=== PATIENT | male | born 1990 | race Caucasian/White ===

== ENCOUNTER 2023-08-15 11:58 | Inpatient (IN) | payer BC, MEDICAID, OTHER ==
[~2023-08-15] VITALS: Ht 180.3 cm; Wt 170.1 kg
[~2023-08-15 11:58] MED LIST: FLUO10CA21 PO
[2023-08-15 12:14] VITALS: BP 149/93; PULSE 121; RESP 38; TEMP 97.5
[2023-08-15 13:45] LABS: BASOPHILS # (AUTO) 0.2 K/uL (0.00-0.22); BASOPHILS % (AUTO) 1.3 % (0.0-2.0); EOSINOPHILS # (AUTO) 0.1 K/uL (0-0.4); EOSINOPHILS % (AUTO) 0.7 % (0.0-4.0); HEMATOCRIT 36.6 % (36-52); HEMOGLOBIN 12.5 g/dL (12.0-18.0); LYMPHOCYTES # (AUTO) 2.1 K/uL (2.0-11.5); LYMPHOCYTES % (AUTO) 14.5 % (20.5-51.1); MEAN CORPUSCULAR HEMOGLOBIN 29 pg (27-31); MEAN CORPUSCULAR HGB CONC 34 g/dL (33-37); MEAN CORPUSCULAR VOLUME 85.8 fL (80-94); MONOCYTES # (AUTO) 1.1 K/uL (0.8-1.0); NEUTROPHILS # (AUTO) 10.8 K/uL (1.8-7.7); NEUTROPHILS % (AUTO) 75.5 % (42.2-75.2); PLATELET COUNT (AUTO) 673 K/uL (140-450); RED BLOOD CELL COUNT(AUTO) 4.27 MIL/uL (4.20-6.10); RED CELL DISTRIBUTION WIDTH 14.2 % (11.6-13.7); WHITE BLOOD COUNT (AUTO) 14.3 K/uL (4.8-10.8)
[2023-08-15] MEDS: NACL 0.9% 1,000 ML IV ONE (13:55)
[2023-08-15 13:56] LABS: INR 1.09 (0.8-1.2); PROTHROMBIN TIME 11.4 secs (10.8-13.4)
[2023-08-15] MEDS: MORPHINE SULFATE 4 MG/ML SYR IVP ONE ×2 (13:56→15:08)
[2023-08-15] MEDS: ONDANSETRON 4 MG/2 ML VIAL IVP ONE (13:57)
[2023-08-15 14:11] LABS: ANION GAP 12.9 (8-16); CALCIUM 8.9 mg/dL (8.5-10.1); CARBON DIOXIDE 25.9 mmol/L (21-32); CREATININE 0.9 mg/dL (0.6-1.3); POTASSIUM 3.8 mmol/L (3.5-5.1)
[2023-08-15 14:14] LABS: ALANINE AMINOTRANSFERASE 28 U/L (12-78); ALBUMIN 2.5 g/dL (3.4-5.0); ALKALINE PHOSPHATASE 83 U/L (50-136); ASPARTATE AMINOTRANSFERASE 22 U/L (15-37); BILIRUBIN,DIRECT 0.1 mg/dL (0.0-0.3); CREATINE KINASE, TOTAL 25 U/L (39-308); PHOSPHORUS 3.2 mg/dL (2.5-4.9); TOTAL BILIRUBIN 0.4 mg/dL (0.0-1.0); TOTAL PROTEIN, SERUM 8.7 g/dL (6.4-8.2)
[2023-08-15 15:33] LABS: AMPHETAMINE, URINE POSITIVE ng/ml (NEG <=1000); BARBITURATE, URINE NEGATIVE ng/ml (NEG <=200); BENZODIAZEPINE, URINE NEGATIVE ng/mL (NEG <=200); CANNABINOID, URINE NEGATIVE ng/mL (NEG <=50); COCAINE, URINE NEGATIVE ng/mL (NEG <=300); PHENCYCLIDINE SCREEN,URINE NEGATIVE ng/mL (NEG <=25)
[2023-08-15 15:34] LABS: OPIATE, URINE POSITIVE ng/mL (NEG <=2000)
[2023-08-15] MEDS ORDERED: VANCOMYCIN PER PHARMACY MC PRN ×2 (16:15→17:20)
[2023-08-15] MEDS ORDERED: VANCOMYCIN 1,000 MG VIAL ONE (16:34)
[2023-08-15] MEDS: KETOROLAC 30 MG/ML VIAL IVP ONE (16:53)
[2023-08-15] MEDS: LORazepam 2 MG/ML VIAL IVP ONE (16:58)
[2023-08-15] MEDS: VANCOMYCIN 1,000 MG in DEXTROSE 5% 250 ML IV ONE (17:10)
[2023-08-15] MEDS ORDERED: LORazepam 2 MG/ML VIAL IVP PRN (17:20)
[2023-08-15] MEDS ORDERED: CLONIDINE HYDROCHLORIDE 0.1 MG TAB PO PRN (17:20)
[2023-08-15] MEDS ORDERED: ONDANSETRON 4 MG/2 ML VIAL IVP PRN (17:20)
[2023-08-15] MEDS ORDERED: ACETAMINOPHEN 325 MG TAB PO PRN (17:20)
[2023-08-15] MEDS ORDERED: IBUP-2213 PO (18:11)
[2023-08-15] MEDS ORDERED: FURO20TA8 PO (18:11)
[2023-08-15] MEDS ORDERED: GABAPENTIN (18:11)
[2023-08-15 18:50] VITALS: PULSE 98
[2023-08-15 18:57] VITALS: BP 130/60; PULSE 100; RESP 19; TEMP 98.1; O2SAT 95
[2023-08-15 19:30] VITALS: PULSE 100; RESP 18; O2SAT 98
[2023-08-15 20:00] VITALS: PULSE 100
[2023-08-15] MEDS: PANTOPRAZOLE 40 MG INJ VIAL IVP SCH (22:16)
[2023-08-15] MEDS: NACL 0.9% 1,000 ML IV SCH (22:16)
[2023-08-15] MEDS: PIPERACILLIN/TAZOBACTAM 3.375 GM in DEXTROSE 5% 50 ML IV SCH (22:17)
[2023-08-15] MEDS: PIPERACILLIN/TAZOBACTAM 3.375 GM VIAL IV ONE (22:19)
[2023-08-16] VITALS: BP_SYST 105; BP_SYST 118; BP_DIAS 57; BP_DIAS 70; PULSE 104; PULSE 108; PULSE 96; RESP 19; TEMP 98.2; TEMP 99; O2SAT 94; O2SAT 97
[2023-08-16] MEDS: MORPHINE SULFATE 2 MG/ML SYR IVP PRN (01:00)
[2023-08-16] MEDS: HYDROcodone/APAP 5/325 MG 1 TAB TAB PO PRN (02:59)
[2023-08-16] MEDS: PIPERACILLIN/TAZOBACTAM 3.375 GM VIAL IV ONE (03:11)
[2023-08-16 04:00] VITALS: BP 105/57; PULSE 102; PULSE 96; RESP 19; TEMP 98.2; O2SAT 94
[2023-08-16 06:34] LABS: BASOPHILS # (AUTO) 0.1 K/uL (0.00-0.22); BASOPHILS % (AUTO) 0.9 % (0.0-2.0); EOSINOPHILS # (AUTO) 0.2 K/uL (0-0.4); EOSINOPHILS % (AUTO) 1.4 % (0.0-4.0); HEMATOCRIT 34.8 % (36-52); HEMOGLOBIN 11.8 g/dL (12.0-18.0); LYMPHOCYTES # (AUTO) 2.4 K/uL (2.0-11.5); LYMPHOCYTES % (AUTO) 19.4 % (20.5-51.1); MEAN CORPUSCULAR HEMOGLOBIN 29 pg (27-31); MEAN CORPUSCULAR HGB CONC 34 g/dL (33-37); MEAN CORPUSCULAR VOLUME 86.2 fL (80-94); MONOCYTES # (AUTO) 1.3 K/uL (0.8-1.0); MONOCYTES % (AUTO) 10.6 % (1.7-9.3); NEUTROPHILS # (AUTO) 8.2 K/uL (1.8-7.7); NEUTROPHILS % (AUTO) 67.7 % (42.2-75.2); PLATELET COUNT (AUTO) 673 K/uL (140-450); RED BLOOD CELL COUNT(AUTO) 4.04 MIL/uL (4.20-6.10); WHITE BLOOD COUNT (AUTO) 12.2 K/uL (4.8-10.8)
[2023-08-16 06:37] LABS: ANION GAP 13.9 (8-16); CREATININE 0.6 mg/dL (0.6-1.3); POTASSIUM 3.9 mmol/L (3.5-5.1)
[2023-08-16 08:00] VITALS: BP 104/74; PULSE 88; RESP 18; TEMP 97; O2SAT 99
[2023-08-16] MEDS: VANCOMYCIN 1.25GM PREMIX 250 ML IV SCH (08:40)
[2023-08-16] MEDS: ENOXAPARIN 40 MG/0.4 ML SYR SUBQ SCH (08:49)
[2023-08-16] MEDS: FUROSEMIDE 20 MG TAB PO SCH (08:51)
[2023-08-16] MEDS ORDERED: FLUoxetine 10 MG CAP PO SCH (09:00)
[2023-08-16 12:00] VITALS: BP 135/75; PULSE 96; RESP 19; TEMP 97.8; O2SAT 97
[2023-08-16] MEDS: KETOROLAC 30 MG/ML VIAL IVP PRN (15:26)
[2023-08-16 16:00] VITALS: BP 139/85; PULSE 95; RESP 19; TEMP 97.8; O2SAT 99
[2023-08-16 20:00] VITALS: BP 140/67; PULSE 97; PULSE 99; RESP 18; TEMP 98.3; O2SAT 97
[2023-08-17] VITALS: BP 134/63; PULSE 95; PULSE 97; RESP 19; TEMP 98.4; O2SAT 100
[2023-08-17 04:00] VITALS: BP 153/77; PULSE 91; PULSE 93; RESP 17; TEMP 98.1; O2SAT 99
[2023-08-17 07:34] LABS: BASOPHILS # (AUTO) 0.1 K/uL (0.00-0.22); BASOPHILS % (AUTO) 0.9 % (0.0-2.0); EOSINOPHILS # (AUTO) 0.4 K/uL (0-0.4); EOSINOPHILS % (AUTO) 3.4 % (0.0-4.0); HEMATOCRIT 34.5 % (36-52); HEMOGLOBIN 11.5 g/dL (12.0-18.0); LYMPHOCYTES # (AUTO) 1.9 K/uL (2.0-11.5); LYMPHOCYTES % (AUTO) 18.3 % (20.5-51.1); MEAN CORPUSCULAR HEMOGLOBIN 29 pg (27-31); MEAN CORPUSCULAR HGB CONC 33 g/dL (33-37); MEAN CORPUSCULAR VOLUME 86.4 fL (80-94); MONOCYTES # (AUTO) 0.9 K/uL (0.8-1.0); MONOCYTES % (AUTO) 8.8 % (1.7-9.3); NEUTROPHILS # (AUTO) 7.2 K/uL (1.8-7.7); NEUTROPHILS % (AUTO) 68.6 % (42.2-75.2); PLATELET COUNT (AUTO) 593 K/uL (140-450); RED BLOOD CELL COUNT(AUTO) 3.99 MIL/uL (4.20-6.10); RED CELL DISTRIBUTION WIDTH 14.2 % (11.6-13.7); WHITE BLOOD COUNT (AUTO) 10.6 K/uL (4.8-10.8)
[2023-08-17 08:00] VITALS: BP 123/75; PULSE 89; RESP 20; TEMP 97.5; O2SAT 98
[2023-08-17 08:33] LABS: CALCIUM 8.8 mg/dL (8.5-10.1); CARBON DIOXIDE 27.6 mmol/L (21-32); CREATININE 0.7 mg/dL (0.6-1.3); POTASSIUM 3.6 mmol/L (3.5-5.1)
[2023-08-17] MEDS ORDERED: CLIN150C1 PO (13:21)
[2023-08-17] MEDS ORDERED: LEVO-481 PO (13:22)
[2023-08-17 13:33] VITALS: BP 123/75; PULSE 83; RESP 20; TEMP 97.5
[2023-08-17] MEDS ORDERED: IBUP-2213 PO (14:05)
== END 2023-08-17 14:09 | disposition home or self-care (01) | DRG 720 ==
LOC: MED 11:58 → MTU 18:03
PROVIDERS: ADMIT Family Medicine; ATTEND Family Medicine
DX: A41.9 Sepsis, unspecified organism (principal); E43 Unspecified severe protein-calorie malnutrition; E87.1 Hypo-osmolality and hyponatremia; Z68.43 Body mass index [BMI] 50.0-59.9, adult; E66.9 Obesity, unspecified; L03.113 Cellulitis of right upper limb; F15.90 Other stimulant use, unspecified, uncomplicated; I10 Essential (primary) hypertension; Z79.899 Other long term (current) drug therapy
CPT/HCPCS: 36415; 71045; 71260; 73110; 73630; 80048; 80076; 80202; 80305; 82550; 83605; 83735; 83880; 84100; 84484; 85025; 85379; 85610; 85651; 85730; 86140; 87040; 87081; 93005; 93971; 96361; 96365; 96375; 96376; 97116; 97163-GP; 99291; C9113; J1650; J1885; J2060; J2270; J2405; J2543; J3370; J3372; J7060; Q0092; Q9967